=== PATIENT | male | born 1945 | race Hispanic/Latino ===

== ENCOUNTER → 2025-04-12 | Outpatient (CLI) | payer OTHER ==
--- NOTE | 2025-04-12 13:41 | HMCIMG ---
CT ABDOMEN/PELVIS W/O CONTRAST REASON: Left lower quadrant pain COMPARISON: None. FINDINGS: Lung bases are clear. There are no focal liver lesions. There are normal-appearing kidneys.. There are small cortical cyst seen upper pole of both kidney Spleen and pancreas appear unremarkable. The gallbladder surgically absent with clips in the gallbladder fossa. Bowel loops appear unremarkable. This includes normal appearance of the appendix There is no evidence of free fluid or intraperitoneal air. There are no focal fluid collections. Aorta and retroperitoneum appear normal as do pelvic soft tissue structures. There is mild atherosclerotic change of the abdominal aorta iliac vessels with calcified plaque. The anterior abdominal wall is intact. Osseous structures appear unremarkable. The prostate and seminal vesicle appears to be normal. There is no mass or free fluid seen in the pelvis. IMPRESSION: 1. No acute process seen a CT of the abdomen and pelvis without intravenous contrast. CT was performed with one or more following dose reduction techniques: automated exposure control, adjustment of the mA and kv according to patient's size, or use of a iterative reconstruction technique.
== END | disposition home or self-care (01) ==
LOC: RAH 09:54
PROVIDERS: ATTEND Internal Medicine Gastroenterology
DX: N28.1 Cyst of kidney, acquired (principal); I70.0 Atherosclerosis of aorta; R10.32 Left lower quadrant pain; Z90.49 Acquired absence of other specified parts of digestive tract
CPT/HCPCS: 74176